=== PATIENT | female | born 1975 | race Caucasian/White ===

== ENCOUNTER 2024-03-26 23:31 | Inpatient (IN) | payer BC, OTHER ==
[2024-03-27] MEDS ORDERED: Ondansetron PF 4 MG/2 ML Vial ONE ×2 (00:47→04:07)
[2024-03-27 01:27] LABS: #Basophils 0.03 10x3/uL (0.0-0.2); #Eosinphils Less than 0.03 10x3/uL (0.0-0.7); %Basophils 0.2 % (0.0-1.0); %Lymphocytes 1.8 % (21.0-51.0); %Monocytes 2.9 % (0.0-10.0); %Neutrophils 94.7 % (42.0-75.0); Hematocrit 52.2 % (36.0-47.0); Hemoglobin 17.3 g/dL (12.0-16.0); Mean Corpuscular HGB CONC 33.1 g/dL (32.0-36.0); Mean Corpuscular Hemoglobin 32.9 pg (27.0-31.0); Mean Corpuscular Volume 99.2 fL (78.0-98.0); Mean Platelet Volume 10.6 fL (7.4-10.4); Platelet Count 256 10x3/uL (130-400); RBC Distribution Width 11.9 % (11.5-14.5); Red Blood Cell (RBC) Count 5.26 mill/uL (4.20-5.40)
[2024-03-27 01:44] LABS: BHCG - Serum Negative (NEGATIVE); Pregs Control Background? CLEAR/WHITE (CLR/WHITE); Pregs Control Bar Appear? YES (CONTROL BAR)
[2024-03-27 01:59] LABS: ALT (SGPT) 31 U/L (8-55); AST (SGOT) 38 U/L (5-34); Albumin 5.2 g/dL (3.5-5.0); Alkaline Phosphatase 82 U/L (40-110); Anion Gap 31 mmol/L (10-20); BUN (Urea Nitrogen) 14 mg/dL (7.0-18.7); Bilirubin, Total 1.8 mg/dL (0.2-1.2); CK (CPK) 35 U/L (29-168); Calc. Creatinine Clearance 0 mL/min (70-130); Calcium 10.5 mg/dL (7.8-10.44); Carbon Dioxide Less than 8 mmol/L (22-29); Chloride 103 mmol/L (98-107); Estimated GFR 50; Globulin 4.7 g/dL (2.4-3.5); Glucose 231 mg/dL (70-105); Potassium 5.6 mmol/L (3.5-5.1); Protein, Total 9.9 g/dL (6.0-8.3); Sodium 135 mmol/L (136-145)
[2024-03-27 02:46] LABS: Hemoglobin A1c 4.3 % (4.0-6.0)
[2024-03-27 02:52] LABS: Troponin I Less than 0.010 ng/mL (< 0.028)
[2024-03-27 02:53] LABS: Calcium, Ionized (venous) 1.15 mmol/L (1.16-1.32); Chloride (VBG) 108 mmol/L (98-106); Hematocrit-VBG 48 % (36.0-47.0); Hemoglobin (Hb) 16.3 g/dL (11.7-16.0)
[2024-03-27] MEDS ORDERED: INSULIN REGULAR IN 0.9 % NACL 0 ML ONE (03:02)
[2024-03-27] MEDS ORDERED: Sodium Bicarb 50 MEQ/50 ML Abboject 8.4% SYRINGE ONE (03:02)
[2024-03-27 04:26] LABS: Bacteria/HPF None Seen HPF (None Seen); Bilirubin Negative (Negative); Blood, Urine 1+ (Negative); CAUTI Indications for Culture Fever or rigors; Clarity Clear (Clear); Glucose, Urine (Dipstick) 200 mg/dL (Negative); Ketone, Urine Greater than 150 mg/dL (Negative); Leukocyte Negative Leu/uL (Negative); Nitrite Negative (Negative); Protein, Urine (Dipstick) 30 mg/dL (Neg-Trace); RBC/HPF 0-3 HPF (0-3); Specific Gravity, Urine 1.008 (1.002-1.036); Squamous Epithelial 0-3 HPF (0-3); Urobilinogen Normal mg/dL (Less than 2); WBC/HPF 0-3 HPF (0-3); pH, Urine 5.5 (5.0-9.0)
[2024-03-27] MEDS ORDERED: Dextrose 50% Abboject 50 ML SYRINGE SLOW IVP PRN (04:29)
[2024-03-27] MEDS ORDERED: Sodium Chloride 0.9% 1,000 ML IV PRN ×4 (04:29)
[2024-03-27] MEDS ORDERED: Acetaminophen 325 MG TAB PO PRN (04:29)
[2024-03-27] MEDS ORDERED: D5 1/2 NS w/20 mEq KCL 1,000 ML IV PRN (04:29)
[2024-03-27] MEDS ORDERED: Dextrose 5 %-0.45 % NaCl 1,000 ML IV PRN (04:29)
[2024-03-27] MEDS ORDERED: Electrolyte Replacement Protocol 1 EACH IVPB PRN (04:29)
[2024-03-27] MEDS ORDERED: NS 0.9% w/ 20 MEQ KCL 1,000 ML IV PRN ×2 (04:29)
[2024-03-27] MEDS ORDERED: INSULIN REGULAR IN 0.9 % NACL 100 ML IVPB SCH (04:30)
[2024-03-27 04:38] LABS: Urine Culture Reflex No No
[2024-03-27 05:11] VITALS: BMI 19.8
[2024-03-27] MEDS: Lactated Ringer's 1,000 ML IV SCH (06:26)
[2024-03-27 06:34] LABS: Acetaminophen Less than 10 mcg/mL (Less than 10); Alcohol Less than 10.0 mg/dL (Less than 10); Salicylate Less than 8.0 mg/dL (Less than 8.0)
[2024-03-27 06:36] LABS: Anion Gap 17 mmol/L (10-20); BUN (Urea Nitrogen) 11 mg/dL (7.0-18.7); Calc. Creatinine Clearance 69 mL/min (70-130); Carbon Dioxide 13 mmol/L (22-29); Chloride 110 mmol/L (98-107); Estimated GFR 79; Glucose 130 mg/dL (70-105); Potassium 4.4 mmol/L (3.5-5.1); Sodium 136 mmol/L (136-145)
[2024-03-27 06:41] LABS: Phosphorus 1.2 mg/dL (2.3-4.7)
[2024-03-27 07:02] LABS: Calcium 8.7 mg/dL (7.8-10.44); Magnesium 1.8 mg/dL (1.6-2.6)
[2024-03-27] MEDS: Sodium Phosphate 30 MMOL in Sodium Chloride 0.9% 250 ML 250 ML IVPB SCH (08:51)
[2024-03-27] MEDS: Dextrose 5%-Lactated Ringers 1,000 ML IV SCH ×2 (08:51→09:49)
[2024-03-27] MEDS: Pantoprazole 40 MG VIAL IVP SCH (08:52)
[2024-03-27] MEDS: Magnesium 2 GM/50 ML(in water) 2 GM in Premix 1 BAG IVPB SCH (08:52)
[2024-03-27] MEDS ORDERED: FLU (Fluarix Triv) TS24-25(6MOS UP)/PF 45 MCG/0.5 ML Syringe IM ONE (09:00)
[2024-03-27] MEDS ORDERED: PHOS-NAK 1 PKT PACK PO SCH (09:00)
[2024-03-27] MEDS: Ondansetron PF 4 MG/2 ML Vial IVP PRN (10:02)
[2024-03-27 12:55] LABS: ALT (SGPT) 19 U/L (8-55); AST (SGOT) 24 U/L (5-34); Albumin 3.8 g/dL (3.5-5.0); Alkaline Phosphatase 55 U/L (40-110); Anion Gap 15 mmol/L (10-20); BUN (Urea Nitrogen) 11 mg/dL (7.0-18.7); Bilirubin, Total 1.5 mg/dL (0.2-1.2); Calc. Creatinine Clearance 72 mL/min (70-130); Calcium 8.9 mg/dL (7.8-10.44); Carbon Dioxide 15 mmol/L (22-29); Chloride 111 mmol/L (98-107); Estimated GFR 83; Globulin 2.9 g/dL (2.4-3.5); Glucose 125 mg/dL (70-105); Magnesium 2.5 mg/dL (1.6-2.6); Phosphorus 2.1 mg/dL (2.3-4.7); Potassium 3.9 mmol/L (3.5-5.1); Protein, Total 6.7 g/dL (6.0-8.3); Sodium 137 mmol/L (136-145)
[2024-03-27 16:54] LABS: Anion Gap 16 mmol/L (10-20); BUN (Urea Nitrogen) 10 mg/dL (7.0-18.7); Calc. Creatinine Clearance 80 mL/min (70-130); Calcium 8.8 mg/dL (7.8-10.44); Carbon Dioxide 18 mmol/L (22-29); Chloride 108 mmol/L (98-107); Estimated GFR 94; Glucose 119 mg/dL (70-105); Potassium 3.8 mmol/L (3.5-5.1); Sodium 138 mmol/L (136-145)
[2024-03-28 04:46] LABS: Hematocrit 36.7 % (36.0-47.0); Mean Corpuscular HGB CONC 35.4 g/dL (32.0-36.0); Mean Corpuscular Hemoglobin 32.3 pg (27.0-31.0); Mean Corpuscular Volume 91.3 fL (78.0-98.0); Mean Platelet Volume 11.2 fL (7.4-10.4); Platelet Count 128 10x3/uL (130-400); RBC Distribution Width 11.9 % (11.5-14.5); Red Blood Cell (RBC) Count 4.02 mill/uL (4.20-5.40)
[2024-03-28 04:54] LABS: ALT (SGPT) 20 U/L (8-55); AST (SGOT) 30 U/L (5-34); Albumin 3.4 g/dL (3.5-5.0); Alkaline Phosphatase 46 U/L (40-110); Anion Gap 8 mmol/L (10-20); BUN (Urea Nitrogen) 7 mg/dL (7.0-18.7); Bilirubin, Total 1.4 mg/dL (0.2-1.2); Calc. Creatinine Clearance 99 mL/min (70-130); Calcium 8.7 mg/dL (7.8-10.44); Carbon Dioxide 23 mmol/L (22-29); Chloride 111 mmol/L (98-107); Estimated GFR 109; Globulin 2.5 g/dL (2.4-3.5); Glucose 122 mg/dL (70-105); Protein, Total 5.9 g/dL (6.0-8.3); Sodium 139 mmol/L (136-145)
[2024-03-28 04:58] LABS: Phosphorus 1.3 mg/dL (2.3-4.7)
[2024-03-28 05:17] LABS: Large Platelets 1.7 % (0-5); Lymphocytes 28 % (21-51); Monocytes 4 % (0-10); Neutrophil 66 % (42-75); Platelet Adequacy Comment Platelets Decreased; RBC Morphology Within Normal Limits; Reactive Lymphocytes 1 % (0-10); Smudge Cells 3.4 %
[2024-03-28] MEDS: Potassium Chloride 20 MEQ in Premix 1 BAG IVPB SCH (05:28)
[2024-03-28] MEDS ORDERED: Potassium Phosphate 9 MMOL in Sodium Chloride 0.9% 100 ML IVPB SCH (05:30)
[2024-03-28] MEDS: Potassium Phosphate 22 MMOL in Sodium Chloride 0.9% 250 ML 250 ML IVPB SCH ×2 (06:50→18:35)
[2024-03-28 15:28] LABS: Phosphorus 1.9 mg/dL (2.3-4.7); Potassium 3.5 mmol/L (3.5-5.1)
[2024-03-29 05:01] VITALS: TEMP 98.1
[2024-03-29 06:31] LABS: ALT (SGPT) 48 U/L (8-55); AST (SGOT) 75 U/L (5-34); Albumin 3.3 g/dL (3.5-5.0); Alkaline Phosphatase 45 U/L (40-110); Anion Gap 10 mmol/L (10-20); BUN (Urea Nitrogen) 4 mg/dL (7.0-18.7); Bilirubin, Total 1.2 mg/dL (0.2-1.2); Calc. Creatinine Clearance 110 mL/min (70-130); Calcium 8.8 mg/dL (7.8-10.44); Carbon Dioxide 28 mmol/L (22-29); Chloride 107 mmol/L (98-107); Estimated GFR 110; Globulin 2.4 g/dL (2.4-3.5); Glucose 98 mg/dL (70-105); Potassium 3.1 mmol/L (3.5-5.1); Protein, Total 5.7 g/dL (6.0-8.3); Sodium 142 mmol/L (136-145)
[2024-03-29 06:35] LABS: #Basophils 0.06 10x3/uL (0.0-0.2); %Basophils 1.4 % (0.0-1.0); %Eosinophils 1.1 % (0.0-10.0); %Lymphocytes 31.5 % (21.0-51.0); %Monocytes 10.2 % (0.0-10.0); %Neutrophils 55.6 % (42.0-75.0); Hematocrit 36.2 % (36.0-47.0); Hemoglobin 12.5 g/dL (12.0-16.0); Mean Corpuscular HGB CONC 34.5 g/dL (32.0-36.0); Mean Corpuscular Hemoglobin 32.3 pg (27.0-31.0); Mean Corpuscular Volume 93.5 fL (78.0-98.0); Mean Platelet Volume 11.4 fL (7.4-10.4); Platelet Count 122 10x3/uL (130-400); RBC Distribution Width 11.9 % (11.5-14.5); Red Blood Cell (RBC) Count 3.87 mill/uL (4.20-5.40)
[2024-03-29] MEDS: Potassium Bicarbonate/Cit Ac 20 MEQ TAB PO SCH (10:06)
[2024-03-29] MEDS: Potassium Chloride 20 MEQ TAB PO SCH (10:30)
[2024-03-29] MEDS: Potassium Chloride 20 MEQ TAB PO ONE (10:30)
[2024-03-29 10:34] LABS: Actual Bicarbonate (HCO3v) 9.4 mEq/L (22-28); pH (venous) 7.145 (7.32-7.43)
[2024-03-29] MEDS ORDERED: Electrolyte Replacement Protocol FS PRN (11:15)
[2024-03-29 11:21] VITALS: BMI 21.2
[2024-03-29] MEDS ORDERED: PHOS-NAK 1 PKT PACK PO SCH (12:30)
[2024-03-29 16:24] VITALS: BP 129/86
[2024-03-30] MEDS ORDERED: Pantoprazole DR 40 MG TAB PO SCH (09:00)
== END 2024-03-29 16:27 | disposition home or self-care (01) | DRG 923 ==
LOC: ERS 23:31 → IMCU/EMU 03-27 02:51 → MSONC 03-27 22:36
PROVIDERS: ADMIT Family Medicine; ATTEND Family Medicine
DX: T73.0XXA Starvation, initial encounter (principal); E87.29 Other acidosis; E83.39 Other disorders of phosphorus metabolism; R73.9 Hyperglycemia, unspecified; D72.829 Elevated white blood cell count, unspecified; F41.9 Anxiety disorder, unspecified; E83.42 Hypomagnesemia; G43.909 Migraine, unspecified, not intractable, without status migrainosus; Z79.899 Other long term (current) drug therapy; X58.XXXA Exposure to other specified factors, initial encounter
CPT/HCPCS: 36415; 36416; 71045; 80053; 80307; 81001; 82010; 82550; 82805; 83036; 83690; 83735; 83930; 84100; 84134; 84484; 84703; 85025; 93005; 96374; 96375; 96376; J1815; J2405; J2470; J3475; J3480; J7050; J7120